=== PATIENT | male | born 1960 | race Caucasian/White ===

== ENCOUNTER 2017-09-21 01:33 | Emergency (ER) | payer OTHER ==
--- NOTE | 2017-09-21 02:43 | EDM.PDOC ---
ED HPI GENERAL MEDICAL PROBLEM - General Chief Complaint: Genitourinary Problem Stated Complaint: BLADDER INFECTION? Time Seen by Provider: 09/21/17 02:23 Source of Information: Reports: Patient, RN Notes Reviewed History Limitations: Reports: No Limitations - History of Present Illness INITIAL COMMENTS - FREE TEXT/NARRATIVE: Drove himself here Chief complaint Painful urination History of present illness 49-year-old male, no history of prostate or urinary tract infection problems apart from a kidney stone at least 12 years ago passed spontaneously. Yesterday about 9 AM started developing discomfort in the penis along with and urgency to urinate, but only small amounts of urine if any being passed. In addition about the same time he started developing and urgency to have a bowel movement. He had diarrhea once but despite recurrent feeling that he need to have a bowel movement over the course of the day, he did not pass any more stool. No fever or chills No abdominal pain May be slight nausea but no vomiting no diarrhea That one episode. Urine appears clear to him He is monogamous has not had a history of STDs. He has frequency but despite the need to go he only ends up passing none or small amounts of urine. No history of similar symptoms in the past Penis Pain Score (Numeric/FACES): 8 - Related Data Allergies Allergy/AdvReac Type Severity Reaction Status Date / Time No Known Allergies Allergy Verified 09/21/17 02:00 Home Meds: Home Meds Dextroamphetamine/Amphetamine [Adderall 20 mg Tablet] 20 mg PO TID 09/21/17 [ History] Eszopiclone [Lunesta] 2 mg PO BEDTIME 09/21/17 [History] Phenazopyridine [Pyridium] 200 mg PO TID PRN #8 tablet 09/21/17 [Rx] Sulfamethoxazole/Trimethoprim [Septra DS] 1 each PO BID #20 tab 09/21/17 [Rx] Past Medical History Genitourinary History: Reports: Renal Calculus, Other (See Below) Other Genitourinary History: ruptured kidney Musculoskeletal History: Reports: Other (See Below) Neurological History: Reports: Concussion Psychiatric History: Reports: Depression - Infectious Disease History Infectious Disease History: Reports: Chicken Pox, Measles - Past Surgical History GI Surgical History: Reports: Colonoscopy Musculoskeletal Surgical History: Reports: Other (See Below) Other Musculoskeletal Surgeries/Procedures:: born with concave sternum, 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 Denies: Abdominal Pain, Difficulty Swallowing, Vomiting : Reports: Dysuria, Frequency, Urgency, Other (Small amounts of urine only). Denies: Discharge, Flank Pain, Incontinence, Urinary Retention Musculoskeletal: Reports: No Symptoms Skin: Reports: No Symptoms Neurological: Reports: No Symptoms Psychiatric: Reports: No Symptoms Immunologic: Reports: No Symptoms ED EXAM, RENAL/ - Physical Exam Exam: See Below Exam Limited By: No Limitations General Appearance: Alert, No Apparent Distress, Other (Vital signs normal, mild bradycardia, no difficulty speaking or breathing) Head: Atraumatic, Normocephalic Neck: Normal Inspection Respiratory/Chest: No Respiratory Distress, No Accessory Muscle Use Cardiovascular: Normal Peripheral Pulses, Regular Rate, Rhythm GI/Abdominal: Normal Bowel Sounds, Soft, Non-Tender, No Organomegaly, No Distention, No Mass (Male) Exam: No Hernia, Normal Inspection, Normal Prostate. No: Hernia, Inguinal Lymphadenopathy, Penile Lesions, Rash, Scrotal Swelling, Scrotum Tenderness (L), Scrotum Tenderness (R), Testicular Mass, Testicular Tenderness ( L), Testicular Tenderness (R), Urethral Discharge Rectal (Males) Exam: Normal Exam, Normal Rectal Tone, Prostate Normal Back Exam: Normal Inspection Extremities: Normal Inspection Neurological: Alert, Oriented, No Motor/Sensory Deficits Psychiatric: Normal Affect, Normal Mood Skin Exam: Warm, Dry, Intact, Normal Color, No Rash Lymphatic: No Adenopathy Course - Vital Signs Last Recorded V/S: Last Vital Signs Temp 36.7 C 09/21/17 02:11 Pulse 56 L 09/21/17 02:11 Resp 18 09/21/17 02:11 BP 121/73 09/21/17 02:11 Pulse Ox 98 09/21/17 02:11 - Orders/Labs/Meds Orders: Active Orders 24 hr Category Date Time Status CULTURE URINE [RM] Stat Lab 09/21/17 02:43 Ordered UA W/MICROSCOPIC [URIN] Stat Lab 09/21/17 01:45 Ordered Labs: Laboratory Tests 09/21/17 Range/Units 01:45 Urine Color Yellow Urine Appearance Clear Urine pH 5.0 (4.5-8.0) Ur Specific Odin 1.025 (1.008-1.030) Urine Protein Negative (NEGATIVE) mg/dL Urine Glucose (UA) Normal (NEGATIVE) mg/dL Urine Ketones Negative (NEGATIVE) mg/dL Urine Occult Blood Moderate (NEGATIVE) Urine Nitrite Negative (NEGAITVE) Urine Bilirubin Negative (NEGATIVE) Urine Urobilinogen Normal (NORMAL) mg/dL Ur Leukocyte Esterase Negative (NEGATIVE) Urine RBC 5-10 H (0-5) Urine WBC 0-5 (0-5) Ur Epithelial Cells Rare Amorphous Sediment Not seen Urine Bacteria Few Urine Mucus Not seen - Re-Assessments/Exams Free Text/Narrative Re-Assessment/Exam: 09/21/17 02:41 57-year-old male with about 20 hours of urgency frequency and bladder irritation symptoms. Examination shows no prostatic tenderness urinalysis shows minimal amount of microscopic hematuria Urine culture pending Differential diagnosis includes urethritis cystitis prostate infection Get rechecked if not improving in 72 hours or sooner if developing complications such as fever or vomiting Departure - Departure Time of Disposition: 02:42 Disposition: Home, Self-Care 01 Condition: Good Clinical Impression: Urethritis, Urinary frequency - Discharge Information Prescriptions: Phenazopyridine [Pyridium] 200 mg PO TID PRN #8 tablet PRN Reason: Painful urination Sulfamethoxazole/Trimethoprim [Septra DS] 1 each PO BID #20 tab Instructions: Urinary Tract Infection, Adult, [id number], Urethritis, Adult Referrals: PCP,None [Primary Care Provider] - Forms: ED Department Discharge Additional Instructions: Drink plenty of fluids In addition to the peridium, he may also take acetaminophen or ibuprofen for pain as needed Get rechecked if not improving in 72 hours or if you develop high fever, repeated vomiting, or severe abdominal pain or otherwise worsening - My Orders Last 24 Hours: My Active Orders 09/21/17 01:45 UA W/MICROSCOPIC [URIN] Stat 09/21/17 02:43 CULTURE URINE [RM] Stat - Assessment/Plan Last 24 Hours: My Active Orders 09/21/17 01:45 UA W/MICROSCOPIC [URIN] Stat 09/21/17 02:43 CULTURE URINE [] Stat
== END 2017-09-21 02:51 | disposition home or self-care (01) ==
LOC: JP.ED 01:33
DX: N34.2 Other urethritis (principal)
CPT/HCPCS: 81001; 87086; 99284